=== PATIENT | female | born 1945 | race Caucasian/White ===

== ENCOUNTER → 2017-07-21 | Outpatient (CLI) | payer BC, MEDICARE ==
--- NOTE | 2017-07-21 11:46 | RAD ---
Chest, 2 views, 07/21/2017: History: Cough and dyspnea Comparison is made to a study from 08/25/2008. The heart size and pulmonary vascularity are normal. There is tortuosity of the thoracic aorta. No pulmonary infiltrates are seen. There is no evidence of pleural fluid. IMPRESSION: No acute cardiopulmonary abnormality is detected.
== END | disposition home or self-care (01) ==
LOC: DXRAD 11:15
PROVIDERS: ATTEND Physician Assistant
DX: R06.00 Dyspnea, unspecified (principal); R05 Cough
CPT/HCPCS: 71020

== ENCOUNTER → 2017-12-17 | Outpatient (CLI) | payer BC, MEDICARE ==
--- NOTE | 2017-12-17 15:13 | RAD ---
DATE: 12/17/2017 EXAM: MAMMO JOHNATHON SCREENING BILATERAL HISTORY: Routine screening COMPARISON: None available This study was interpreted with the benefit of Computerized Aided Detection (CAD). The breast parenchyma shows scattered fibroglandular densities. Breast parenchyma level B. FINDINGS: 2-D and 3-D tomosynthesis imaging was performed in CC and MLO projections. There is a 6 mm nodule in the medial aspect of the left breast anteriorly at approximately the 9:00 location, as best demonstrated on CC johnathon image #21. Just posterior and lateral to this first nodule there is a less well-defined nodule which contains 3 relatively coarse calcifications. No other suspicious breast densities are seen. There are benign type calcifications in other portions of both breasts. IMPRESSION: Small left breast nodules as described above. A targeted ultrasound exam is suggested for further evaluation. BI-RADS CATEGORY: 0 INCOMPLETE: NEEDS ADDITIONAL IMAGING EVALUATION AND/OR PRIOR MAMMOGRAMS FOR COMPARISON. RECOMMENDED FOLLOW-UP: ADD ADDITIONAL IMAGING PQRS compliance statement: Patient information was entered into a reminder system with a target due date for the next mammogram. Mammography is a sensitive method for finding small breast cancers, but it does not detect them all and is not a substitute for careful clinical examination. A negative mammogram does not negate a clinically suspicious finding and should not result in delay in biopsying a clinically suspicious abnormality. "Our facility is accredited by the [employer] Mammography Program."
== END | disposition home or self-care (01) ==
LOC: MAMMO 11:00
PROVIDERS: ATTEND Family Medicine
DX: Z12.31 Encounter for screening mammogram for malignant neoplasm of breast (principal)
CPT/HCPCS: 77063; 77067

== ENCOUNTER → 2017-12-25 | Outpatient (CLI) | payer BC, MEDICARE ==
--- NOTE | 2017-12-25 08:55 | RAD ---
Left breast ultrasound, 12/25/2017: History: Breast nodules A targeted ultrasound exam of the left breast was performed in the periareolar region. At the 9:00 location approximately 2 cm from the nipple there is a small hypoechoic nodule measuring 3 x 4 x 3 mm. No posterior acoustic enhancement or shadowing is seen. There are low level internal echoes. Some of its margins are not clearly defined. No definite color flow is is seen within this nodule. It is taller than wide. This appears to correspond in location to one of the nodules seen on the recent mammograms. The other left breast nodule described on the mammograms, which contained several coarse calcifications, was not visualized sonographically. IMPRESSION: 1. Mildly suspicious nodule at the 9:00 location in the left breast. Ultrasound-guided biopsy is suggested for further evaluation. 2. The other nodule seen on mammograms could not be visualized sonographically. Its mammographic characteristics are suggestive of a partially calcified fibroadenoma. Mammographic surveillance is suggested. BI-RADS 4-suspicious abnormality Note: The findings were discussed with the patient at the time of the exam by the clinical technologist. The patient is aware of the recommendation for biopsy and will follow-up with the ordering provider.
== END | disposition home or self-care (01) ==
LOC: US 07:49
PROVIDERS: ATTEND Family Medicine
DX: R92.8 Other abnormal and inconclusive findings on diagnostic imaging of breast (principal)
CPT/HCPCS: 76641

== ENCOUNTER → 2019-01-20 | Outpatient (CLI) | payer BC, MEDICARE ==
--- NOTE | 2019-01-20 08:25 | RAD ---
Chest, 2 views, 01/20/2019: HISTORY: Cough Comparison is made to a study from 07/21/2017. The heart size and pulmonary vascularity are normal. There is mild tortuosity of the thoracic aorta. No pulmonary infiltrate is seen. There is no evidence of pleural fluid. Mild spurring is present in the spine. IMPRESSION: No acute cardiopulmonary abnormality is detected. Electronically signed by: Nuno Phillips MD (01/20/2019 8:22 AM) [facility]
== END | disposition home or self-care (01) ==
LOC: DXRAD 07:51
PROVIDERS: ATTEND Physician Assistant
DX: R06.00 Dyspnea, unspecified (principal); R05 Cough; M46.00 Spinal enthesopathy, site unspecified
CPT/HCPCS: 71046

== ENCOUNTER → 2019-07-16 | Outpatient (CLI) | payer BC ==
[~2019-07-16] MED LIST: IOHEXOL 240 MG/ML 50ML VIAL. ONE; IOHEXOL 240 MG/ML 50ML VIAL. PO ONE; IOHEXOL 300 MG/ML 75 ML VIAL. IV ONE
[2019-07-16 09:39] LABS: GFR 54.7
--- NOTE | 2019-07-16 10:38 | RAD ---
CT scan of the abdomen and pelvis with contrast 07/16/2019 CLINICAL HISTORY: Abdominal distention with abdominal tenderness for 4 days. TECHNIQUE: After the oral and intravenous administration of contrast, contiguous, 5 mm axial sections were obtained through abdomen and pelvis. 60 cc of Omnipaque 300 were administered intravenously during this examination. One or more of the following individualized dose reduction techniques were utilized for this study: 1. Automated exposure control. 2. Adjustment of the mA and/or kV according to patient size. 3. Use of iterative reconstruction technique. FINDINGS: Images through the lung bases demonstrate mild cardiomegaly. Minimal dependent subsegmental atelectasis is seen bilaterally. The liver parenchyma has a decreased attenuation consistent with fatty infiltration. The spleen, pancreas, adrenal glands and kidneys are within normal limits. Atherosclerotic calcification abdominal aorta is seen. The abdominal aorta tapers normally. Despite gallstones are seen within the dependent portions of the gallbladder. No free fluid or free air is within the abdomen. There is no evidence of bowel obstruction. The appendix is not visualized. No inflammatory changes are seen surrounding the cecum. Images through the pelvis demonstrate the urinary bladder to be contracted. Multiple diverticula are seen involving the sigmoid colon. No inflammatory changes are seen in the adjacent fat. No adnexal mass is seen. No free fluid is noted. Calcifications are seen within the pelvis consistent with phleboliths. Degenerative changes are seen involving the lower thoracic and throughout the lumbar spine along with both hips. IMPRESSION: 1. Cholelithiasis. 2. No acute abnormality is seen. Electronically signed by: Leonel Mariee MD (07/16/2019 10:35 AM) [facility]
== END | disposition home or self-care (01) ==
LOC: PMG 08:34
PROVIDERS: ATTEND Registered Nurse
DX: K80.20 Calculus of gallbladder without cholecystitis without obstruction (principal); K57.30 Diverticulosis of large intestine without perforation or abscess without bleeding; I51.7 Cardiomegaly; J98.11 Atelectasis; I70.0 Atherosclerosis of aorta
CPT/HCPCS: 36415; 74177; 82565; 84520; Q9966; Q9967

== ENCOUNTER → 2021-12-26 | Outpatient (CLI) | payer BC ==
--- NOTE | 2021-12-26 13:44 | RAD ---
EXAM: XR CHEST 2V 12/26/2021 9:44 AM CLINICAL INDICATION: PA and lateral views of the chest COMPARISON: Chest radiograph 01/20/2019 TECHNIQUE: PA and lateral views of the chest FINDINGS: The heart and mediastinum are normal. Lungs are well-expanded and clear. No consolidatio n, pleural effusion, or pneumothorax. Pulmonary vascularity is normal. The thoracic skeleton is int act. There is a 6 mm calcification projecting over the lateral left humeral head, possibly calcific t endinitis. IMPRESSION: No acute cardiopulmonary abnormality. Electronically signed by: Janee Hobson MD (12/26/2021 1:41 PM) [id number]
== END ==
LOC: RAD 09:22
PROVIDERS: ATTEND Family Medicine
DX: R06.02 Shortness of breath (principal); R05.9 Cough, unspecified
CPT/HCPCS: 71046